=== PATIENT | female | born 1970 | race Caucasian/White ===

== ENCOUNTER 2019-03-08 12:05 | Observation (INO) | payer BC ==
--- OUTSIDE RECORDS SUMMARY | 2019-03-08 12:35 | XMS REPORT | Continuity of Care Document ---
:1970 External Reference #:[id number] Author Name Bianca Spaulding NP Address [address] [facility] [place] [address] Care Team Providers Name Role Phone John Lara MD Care Team Information Cost Engineer Unavailable John Lara MD Primary Care Physician Unavailable Payers Date Identification Numbers Payment Provider Subscriber Effective: 2018 Policy Number: [id number] Out Of Area [facility] Jonathan Moraes PayID: [id number] [address] [address] [place] [address] Effective: 2011 Policy Number: [id number] BC/BS Of SILVESTRE Moraes Expires: 2018 Group Name: BC/BS [address] [address] PayID: [id number] [place] [address] Problems Active Problems Provider Date Edema John Lara M.D. Onset: 06/23/2013 Arthropathy John Lara M.D. Onset: 06/23/2013 Malaise and fatigue John Lara M.D. 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 Tobacco Use Start: Unknown Nonsmoker ETOH Use Rarely consumes alcohol Exercise Type/Frequency Current Exercises sporadically Seat Belt/Car Seat Always uses a seat belt Allergies, Adverse Reactions, Alerts Description No Known Drug Allergies Medications Active Medications SIG Qnty Indications Ordering Date Provider Ibuprofen 2-3 qid prn Unknown 200mg Tablets Gabapentin 1 by mouth daily Unknown 300mg Capsules at hs Diphenhydramine HCL 1 by mouth at Unknown 25mg bedtime as Capsules directed Multi Complete 1 daily Unknown Capsules Iron 75 mg every three Unknown days History Medications Montelukast Sodium Take 1 Tablet By 30tabs J45.20 Bonnie Urban [facility] 2015 - Mouth Once Daily 03/08/2019 10mg Tablets Junel Fe 09/26 Take 1 Tablet By 28tabs N92.5 Bonnie Urban [facility] 05/01/2016 - Mouth Once Daily 03/08/2019 1-20mg-mcg Tablets Singulair Take 1 Tablet By 30tabs J45.20 Bonnie Urban [facility] 11/08/2015 - 10mg Mouth Once Daily 06/01/2016 Tablets Montelukast Sodium 1 by mouth every 30tabs 493.10 Bonnie Urban [facility] 2014 - day 11/08/2015 10mg Tablets Loestrin Fe 09/26 1 by mouth daily 1pack 626.4 Bonnie Urban [facility] 2013 - 05/01/2016 1-20mg-mcg Tablets Iron Supplement 1 po bid 100tabs John Lara, 07/11/2013 - M.D. 03/08/2019 325(65Fe) mg Tablets Loestrin 24 Fe 1 po qd 1pack V25.09 John Lara, 02/17/2013 - M.D. 09/14/2013 1-20mg-mcg Tablets Proair HFA Inhale 1 To 2 8.5units J45.20 China Mina, 02/16/2013 - Puffs By Mouth M.D. 03/08/2019 108(90Base) mcg/Act Every 4 To 6 Aerosol Hours as Needed Ankle Stirrup Brace wear as directed 1units 845.00 Martin Ashraf, 2009 - M.D. 04/07/2010 Levaquin 1 po qd 10tabs 465.9 Efrain Marcos, 11/29/2009 - 500mg M.D. 04/06/2010 Tablets Prednisone 2 bid x 3days, 30tabs 493.10 Efrain Marcos, 11/29/2009 - 10mg then 3 qd x 3 M.D. 04/06/2010 Tablets days, then 1 bid x 3 days then 1 qd x 3 Tussionex 5ml po q12 hours 70ml 465.9 Efrain Marcos, 11/15/2009 - Pennkinetic ER M.D. 11/29/2009 8-10mg/5ML Liquid ER Note please excuse 1units Efrain Marcos, 11/12/2009 - from work 11/08/09 M.D. 04/06/2010 through today due to illness Ronna Casas one to two tabs 30caps 465.9 Efrain Marcos, 11/12/2009 - po tid prn cough M.D. 11/15/2009 100mg Capsules Azithromycin 2 po today and 1 6tabs 465.9 Efrain Marcos, 11/12/2009 - 250mg po x 4 days M.D. 11/29/2009 Tablets Proair HFA 1-2 puffs q 4-6 1units 493.00 Fanta Reich, 07/06/2009 - hr prn Afnp-C 02/16/2013 108mcg/Act Aerosol Tamiflu 1 po bid x 5 10caps 079.99 Fanta Reich, 07/06/2009 - 75mg days Afnp-C 07/11/2009 Capsules Zithromax 2 po qd today , 6Tabs 079.99 Fanta Reich, 07/06/2009 - 250mg then 1 po qd Afnp-C 07/09/2009 Tablets times 4 Out Of Work out of work due 079.99 Fanta Reich, 07/06/2009 - to illness; january Afnp-C 07/11/2009 return to work after 24 hrs w/o fever Augmentin 1 PO bid With 20tabs 461.9 Bonnie Urban, LEAD CASE MANAGER 03/31/2007 - 500mg;125 Food X 10D 07/06/2009 mg Tablets Robitussin ac 1-2 TSP PO Q4H 4Oz 461.9 Bonnie Urban, [facility] 03/31/2007 - prn Cough 07/06/2009 Note No Work Alysia Was 461.9 Bonnie Urban, [facility] 03/31/2007 - Seen By Me Today 07/06/2009 For Illness, May Not Return Thursday, 7\\\\07 Skelaxin 1 PO bid 60tabs Bonnie Urban, [facility] 12/03/2005 - 800mg 03/31/2007 Tablets Ibuprofen 1-2 po q 6hr prn Family Medicine 12/03/2005 - 200mg [facility] 07/06/2009 Tablets [facility]enton Orthonovum as Directed 0units [facility] 12/03/2005 - [facility] 02/15/2013 [facility] Proair Two Puffs as 1units Fanta Reich, 12/03/2005 - 90mcg/Dose Needed qid Afnp-C 07/06/2009 Aerosol Vicodin 5/500 1 qid prn Pain 30units [facility] 12/03/2005 - [facility] 03/31/2007 [facility] Claritin 1 po qd 30tabs Unknown - 10mg 03/08/2019 Tablets Neurontin 3-5 po qhs Unknown - 200mg 03/08/2019 Capsules Immunizations CPT Code Status Date Vaccine Lot # [id number] Given 04/29/2015 DO Not Use Split Influenza Virus Vaccine [id number] Given 02/17/2013 Tdap Tetanus, W Pertussis [id number] Vital Signs Date Vital Result Comment 03/08/2019 9:06am BP Systolic 118 mmHg BP Diastolic 68 mmHg Heart Rate 82 /min Body Temperature 98.6 F Respiratory Rate 16 /min Height 60 inches 5'0" Weight 163.00 lb BMI (Body Mass Index) 31.8 kg/m2 04/09/2015 9:46am BP Systolic 112 mmHg BP Diastolic 72 mmHg Heart Rate 74 /min Body Temperature 98.3 F Height 60 inches 5'0" Weight 170.00 lb BMI (Body Mass Index) 33.2 kg/m2 06/23/2013 10:49am BP Systolic 110 mmHg BP Diastolic 70 mmHg Heart Rate 68 /min Body Temperature 98.3 F Respiratory Rate 16 /min Height 60 inches 5'0" Weight 173.00 lb BMI (Body Mass Index) 33.8 kg/m2 02/17/2013 10:25am BP Systolic 120 mmHg BP Diastolic 88 mmHg Heart Rate 64 /min Body Temperature 97.9 F Respiratory Rate 18 /min Height 60 inches 5'0" Weight 173.00 lb BMI (Body Mass Index) 33.8 kg/m2 02/16/2013 8:29am BP Systolic 120 mmHg BP Diastolic 88 mmHg Heart Rate 60 /min Body Temperature 97.8 F Height 60 inches 5'0" Weight 173.25 lb BMI (Body Mass Index) 33.8 kg/m2 05/09/2010 4:29pm BP Systolic 102 mmHg BP Diastolic 72 mmHg Heart Rate 68 /min Height 60 inches 5'0" Weight 157.00 lb BMI (Body Mass Index) 30.7 kg/m2 04/06/2010 1:02pm BP Systolic 110 mmHg BP Diastolic 70 mmHg Heart Rate 84 /min Body Temperature 97.2 F Respiratory Rate 16 /min Height 60 inches 5'0" Weight 161.00 lb BMI (Body Mass Index) 31.4 kg/m2 11/29/2009 11:59am BP Systolic 120 mmHg BP Diastolic 80 mmHg Heart Rate 84 /min Body Temperature 99.1 F O2 % BldC Oximetry 99 % Weight 155.00 lb 11/12/2009 10:04am BP Systolic 110 mmHg BP Diastolic 80 mmHg Heart Rate 96 /min Body Temperature 99.3 F Weight 152.00 lb 07/06/2009 10:46am BP Systolic 120 mmHg BP Diastolic 74 mmHg Heart Rate 104 /min Body Temperature 102.6 F Height 60 inches 5'0" Weight 162.00 lb BMI (Body Mass Index) 31.6 kg/m2 03/31/2007 3:22pm BP Systolic 114 mmHg BP Diastolic 74 mmHg Heart Rate 78 /min Body Temperature 97.7 F Height 60 inches 5'0" Weight 151.00 lb BMI (Body Mass Index) 29.5 kg/m2 12/03/2005 1:04pm BP Systolic 108 mmHg BP Diastolic 72 mmHg Heart Rate 84 /min Respiratory Rate 18 /min Height 60 inches 5'0" Weight 151.00 lb BMI (Body Mass Index) 29.5 kg/m2 Results Test Date Facility Test Result H/L Range Note CBC Electronic (Fma) 06/23/2013 [facility] WBC 7.1 3.6-9.6 (607)- - RBC 5.31 3.90-5.70 Hemoglobin (Fma/CMC/CTX) 11.3 g/dL Low 12.1 - 17.2 Hematocrit (Fma/CMC/CTX) 37.5 % 36.1 - 50.3 Platelets 388 10^3/ul 150-400 Lymph% 36.7 20.5-51.1 Mixed% 6.0 Neutrophils % 57.3 Mean Corpuscular Vol 71 Low 82.2-97.4 Mean Corpuscular Hemoglobin 21.3 Low 27.6-33.3 Mean Corpuscular Hemo Concen 30.1 Low 32.0-36.0 RDW 16.8 High 11.6-13.7 Mean Platelet Volume 8.3 6.5-11.0 Laboratory test 06/23/2013 [facility] Sed Rate 11 mm finding (607)- - (Fma/CMC/[facility]) Comprehensive 06/23/2013 [place] [facility](fma) Albumin 4.5 g/dL 3.8-5. Metabolic Prof 5 Alk. Phos. 89 U/L 30-110 Alt (SGPT) 26 U/L 7-35 Ast (Sgot) 38 U/L High 5-34 BUN 9 mg/dL 6-26 Calcium 9.1 mg/dL 8.6-10.2 Chloride 101 mEq/L 94-112 Creatinine 0.9 mg/dL 0.6-1.4 Carbon Dioxide 27 mEq/L 21-32 Glucose 109 mg/dL High 70-105 1 Sodium 139 mEq/L 134-149 Total Bilirubin 0.4 mg/dL 0.2-1.3 Total Protein 7.2 g/dL 6.3-8.1 Potassium 4.4 mEq/L 3.6-5.5 Globulin 2.7 g/dL 2.0-4.8 A/G Ratio 1.6 Calc 0.6-2.3 BUN/Creat Ratio 9.7 Calc 8.0-36.0 Laboratory test finding 06/23/2013 [facility](fma) TSH 2.34 mIU/L 0.50-6.00 Ferritin 7 ng/mL 6-115 Laboratory test 06/23/2013 [facility] C-Reactive 3.4 mg/L 0.0-5.0 2 finding [address] [facility] [place] [address] [phone] Cortisol (Am) 8.0 g/dL 4.3-22.4 Iron/Tibc,%Sat Group 06/23/2013 [facility] Iron 24 g/dL Low 30-158 [address] [place] [address] [phone] Total Iron Binding Cap. 457 g/dL High 250-450 % Iron Saturation 5.3 % Low 13.0-45.0 Laboratory test 06/23/2013 [facility] Reticulocyte 2.3 % High 0.5-1.5 finding [address] [facility] [place] [address] [phone] Celiac Disease 06/23/2013 [facility] Deamidated 2 units 0-19 3 Comp PNL 28 [facility] Gliadin Abs, [place] [address] [phone] Deamidated Gliadin Abs, IgG 2 units 0-19 4 t-Transglutaminase (tTG) IgA <2 U/mL 0-3 5 t-Transglutaminase (tTG) IgG <2 U/mL 0-5 6 Endomysial Antibody IgA Negative Negative Immunoglobulin A, Qn, Serum 90 mg/dL Low 91-414 Laboratory test 02/17/2013 [facility] Thin Prep W/HPV SEE NOTE 7 finding [address] [place] [address] [phone] Urine 02/17/2013 [facility] SP Grav 1.015 (Fma) (607)- - Urine, (Fma/CMC/CTX) negative Ua - Non Micro (Fma) 02/17/2013 [facility] Appearance clear (607)- - Color yellow Glucose, Urine (Fma/CMC/CTX) neg Bilirubin neg Ketones neg SP Grav 1.015 Blood trace-intact # PH 7.0 Protein neg Urobil 0.2 Nitrite neg Leukocytes (Fma/CMC/[facility]) neg Laboratory test 02/16/2013 [facility] Vitamin D, 25 30.8 ng/mL 30.0-100.0 8 finding [address] [facility] [place] [address] [phone] Lyme Igg/M W/RFX 02/16/2013 [facility] Lyme IgG/IgM <0.91 0.00-0.90 [address] [place] [address] [place] [address] [phone] Lyme Disease Ab, Quant, IgM <0.91 index 0.00-0.90 10 Laboratory test 02/16/2013 [facility] Rheumatoid Arth 8.0 IU/mL 0.0-13.9 finding [address] [facility] [place] [address] [phone] Antinuclear Abs, Ifa Negative 11 CBC Electronic (a) 02/16/2013 [facility] WBC 6.7 3.6-9.6 (607)- - RBC 4.88 3.90-5.70 Hemoglobin (Fma/CMC/CTX) 8.7 g/dL Low 12.1 - 17.2 12 Hematocrit (Fma/CMC/CTX) 29.8 % Low 36.1 - 50.3 Platelets 423 10^3/ul High 150-400 Lymph% 36.6 20.5-51.1 Mixed% 11.9 Neutrophils % 51.5 Mean Corpuscular Vol 61 Low 82.2-97.4 Mean Corpuscular Hemoglobin 17.7 Low 27.6-33.3 Mean Corpuscular Hemo Concen 29.1 Low 32.0-36.0 RDW 16.3 High 11.6-13.7 Mean Platelet Volume 8.9 6.5-11.0 Laboratory test 02/16/2013 [facility] Sed Rate 16 mm finding (607)- - (Fma/CMC/[facility]) Laboratory test 02/16/2013 [facility] Duarte([facility]) B12 372 pg/mL 230-1 finding 050 Lipid Profile 02/16/2013 [facility]) Cholesterol 236 mg/dL High 120-2 00 HDL 62 mg/dL 30-85 Triglycerides 174 mg/dL 30-200 HDL Risk Factor 3.8 CALC 0.0-4.4 LDL (Calculated) 139 CALC High 0-129 VLDL (Calculated) 35 mg/dL 0-50 Comprehensive Metabolic 02/16/2013 U[facility] Duarte([facility]) Albumin 4.3 g/dL 3.8-5.5 Prof Alk. Phos. 78 U/L 30-110 Alt (SGPT) 26 U/L 7-35 Ast (Sgot) 50 U/L High 5-34 13 BUN 10 mg/dL 6-26 Calcium 9.2 mg/dL 8.6-10.2 Chloride 103 mEq/L 94-112 Creatinine 0.8 mg/dL 0.6-1.4 Carbon Dioxide 28 mEq/L 21-32 Glucose 100 mg/dL 70-105 Sodium 139 mEq/L 134-149 Total Bilirubin 0.5 mg/dL 0.2-1.3 Total Protein 7.2 g/dL 6.3-8.1 Potassium 4.4 mEq/L 3.6-5.5 Globulin 2.9 g/dL 2.0-4.8 A/G Ratio 1.5 Calc 0.6-2.3 BUN/Creat Ratio 11.2 Calc 8.0-36.0 Laboratory test finding 02/16/2013 [facility](fma) TSH 4.48 mIU/L 0.50-6.00 Free T4 0.93 ng/dL 0.75-1.54 Influenza A&B 07/06/2009 [facility] Influenza A NEG (607)- - Influenza B NEG 1 RESUL TRECK'D 2 4sst; 1lav 3 Negative 0 - 19 Weak Positive 20 - 30 Moderate to Strong Positive >30 4 Negative 0 - 19 Weak Positive 20 - 30 Moderate to Strong Positive >30 5 Negative 0 - 3 Weak Positive 4 - 10 Positive >10 Tissue Transglutaminase (tTG) has been identified as the endomysial antigen. Studies have demonstr- ated that endomysial IgA antibodies have over 99% specificity for gluten sensitive enteropathy. 6 Negative 0 - 5 Weak Positive 6 - 9 Positive >9 7 [employer] [employer] DEPARTMENT OF PATHOLOGY or Extension 8244 COMBINED HPV / GRANT OFFICER CYTOLOGY REPORT PATIENT: ALYSIA MORAES : 1970 AGE: 42 Y SEX: F ACCT: [id number] PROCEDURE DATE: 02/17/2013 DATE RECEIVED: 02/18/2013 REQUESTING PROVIDER: MYLENE EVANS NP LOCATION: [facility] Case No. [id number] PATIENT DATA: [id number] SPECIMEN SUBMITTED: * * (HPVR) THIN PREP W/HPV * * CERVICAL/ENDOCERVICAL RELEVANT HISTORY: LMP: /??/2012 Comment: PREVIOUS PAP: YEARS SPECIMEN ADEQUACY SATISFACTORY FOR EVALUATION, ENDOCERVICAL TRANSFORMATION ZONE COMPONENT PRESENT GENERAL CATEGORIZATION NEGATIVE FOR INTRAEPITHELIAL LESIONS OR MALIGNANCY RECOMMENDATIONS See Related Reference Test Result below. Refer to the corresponding web sites for 2012 updated general recommendation guidelines of U.S. preventive service task force for cervical cancer screening, and www.asccp.org//yhzryonfq7944. COMMENTS Thin Prep Pap tests are examined with an FDA approved location-guidance system. RELATED REFERENCE TEST RESULT: HPV: "HIGH RISK" Source: CERVICAL Result: NEGATIVE Test Method: HC2 Performing Location: METHODOLOGY: HPV high risk is performed with the FDA approved Digene HC2 method whenever the specimen is cellular enough and the quantity of sample remaining in the vial after Thin Prep PAP slide preparation equals or greater than 4 ml. In cases of smaller sample (0.5 to 3.9 ml) the HPV high risk testing will be performed with Low Volume rfx. (01 RN) Digene Hybrid Capture (HC2). FDA approved and detects 13 "high risk" HPV types (16/18/31/33/35/39/45/51/52/56/58/59/68) without differentiation. (02 BN) Low Volume rfx detects fourteen "high risk" HPV types (16/18/31/33/35/39/45/51/52/56/58/59/66/68) without differentiation. ADDITIONAL COPIES SENT TO: Screened/Rescreened Electronically Signed Sign Out Date/Time: by: by: SEVERINO DEVLIN, 02/24/2013 10:11 CT(ASC) Note: The Pap smear is a screening test designed to aid in the detection of premalignant and malignant conditions of the uterine cervix. It is not a diagnostic procedure and should not be used as the sole means of detecting cervical cancer. Both false-positive and false-negative reports do occur. 00 UA Pap Smear performed at [facility] Dir: Alber Jewell MD, [address] [facility] [address] 01 airplane rental clerk [place] Dir: Srini Flores MD, [address] [facility] [address] 02 BN [facility] [place] Dir: Carlos Eduardo Ferrell MD, [address] [facility] [address] For inquiries regarding HPV test results, the physician may contact [facility]: [phone] . 8 Vitamin D deficiency has been defined by the [employer] of Medicine and an Endocrine Society practice guideline as a level of serum 25-OH vitamin D less than 20 ng/mL (1,2). The Endocrine Society went on to further define vitamin D insufficiency as a level between 21 and 29 ng/mL (2). 1. IOM ([employer] of Medicine). 2010. Dietary reference intakes for calcium and D. [place]: The National Academies Press. 2. Rochelle MF, Lidia NC, Venkat TREVIÑO, et al. Evaluation, treatment, and prevention of vitamin D deficiency: an Endocrine Society clinical practice guideline. JCEM. 2010; 96(7):1911-30. 9 Negative <0.91 Equivocal 0.91 - 1.09 Positive >1.09 Note: The CDC currently advises that Western blot testing be performed following all equivocal or positive EIA results. Final diagnosis should include appropriate clinical findings and a positive EIA which is also positive by Western blot. 10 Negative <0.91 Equivocal 0.91 - 1.09 Positive >1.09 . Note: IgM levels may peak at 3-6 weeks post infection, then gradually decline. FDA currently advises that Western Blot testing be performed following all equivocal or positive EIA results. Final diagnosis should include appropriate clinical findings and a positive EIA which is also positive by Western Blot. 11 Negative <1:80 Borderline 1:80 Positive >1:80 12 result camden'd and provider made aware 13 result camden'd Procedures Date Code Description Status 06/05/2014 19404351 Mammogram Completed 09/14/2013 85301336 Mammogram Completed 02/24/2013 [id number] Mammogram Completed 07/06/2009 87006 Pulse Oximetry Completed Encounters Type Date Location Provider Dx Diagnosis Office Visit 04/09/2015 Main Office ETHAN Yanez 626.4 Irregular Menstrual 9:30a Cycle 493.10 Asthma Intrinsic Unspecified Office Visit 06/23/2013 9:40a Main Office John Lara, 780.79 Malaise And M.D. 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 Respiratory Infections Acute Unspec Sites 493.10 Asthma Intrinsic Unspecified Office Visit 11/12/2009 10:00a [facility] Efrain Carney 465.9 KELLY Marcos M.D. 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 Please go to the emergency department with your driving as we discussed.R42 Dizziness and giddinessAllComments :1. Patient has been queried about patient's goals/preferences and functional/ lifestyle goals at relevant visits. If relevant, describe: Has been discussed, noted above2. Treatment goals as explainedto the patient: see above3. Are there barriers to meeting treatment goals? Yes If Yes, please describe: Barriers include possible insurance limits, disease process, and difficulty with lifestyle changes4. Self-Management goals as described to the patient: Yes , see above As always, we strongly encourage a healthy diet and making physical activity a part of your every day life. If you have questions about how or where to start, please contact the office.
--- OUTSIDE RECORDS SUMMARY | 2019-03-08 12:35 | XMS REPORT | Continuity of Care Document ---
:1970 External Reference #:[id number] Author Name Bianca Spaulding NP Address [address] [place] [address] Care Team Providers Name Role Phone John Lara MD Care Team Information Set Up Person Unavailable John Lara MD Primary Care Physician Unavailable Payers Date Identification Numbers Payment Provider Subscriber Effective: 2018 Policy Number: [id number] Out Of Area 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 Tobacco Use Start: Unknown Nonsmoker [...] 1 Tablet By 30tabs J45.20 Bonnie Urban [facility] 2015 - Mouth Once Daily 03/08/2019 10mg Tablets Junel Fe 09/26 Take 1 Tablet By 28tabs N92.5 Bonnie Urban [facility] 05/01/2016 - Mouth Once Daily 03/08/2019 1-20mg-mcg Tablets Singulair Take 1 Tablet By 30tabs J45.20 Bonnie Urban [facility] 11/08/2015 - 10mg Mouth Once Daily 06/01/2016 Tablets Montelukast Sodium 1 by mouth every 30tabs 493.10 Bonnie Urban [facility] 2014 - day 11/08/2015 10mg Tablets Loestrin Fe 09/26 1 by mouth daily 1pack 626.4 Bonnie Urban [facility] 2013 - 05/01/2016 1-20mg-mcg Tablets Iron Supplement [...] PO bid With 20tabs 461.9 Bonnie Urban, [employer] 03/31/2007 - 500mg;125 Food X 10D 07/06/2009 mg Tablets Robitussin ac 1-2 TSP PO Q4H 4Oz 461.9 Bonnie Urban, [facility] 03/31/2007 - prn Cough 07/06/2009 Note No Work Alysia Was 461.9 Bonnie Urban, [facility] 03/31/2007 - Seen By Me Today 07/06/2009 For Illness, May Not Return Thursday, 7\\\\07 Skelaxin 1 PO bid 60tabs Bonnie Urban, [facility] 12/03/2005 - 800mg 03/31/2007 Tablets Ibuprofen 1-2 po q 6hr prn Family [facility] 12/03/2005 - 200mg [facility] 07/06/2009 Tablets Maynard Orthonovum as Directed 0units [facility] 12/03/2005 - [facility] 02/15/2013 Maynard Proair Two Puffs as 1units [facility] Reich, 12/03/2005 - 90mcg/Dose Needed qid Afnp-C 07/06/2009 Aerosol Vicodin 5/500 1 qid prn Pain 30units [facility] 12/03/2005 - [facility] 03/31/2007 Maynard Claritin 1 po qd 30tabs Unknown - 10mg 03/08/2019 Tablets Neurontin 3-5 po qhs Unknown - 200mg 03/08/2019 Capsules Immunizations CPT Code Status Date Vaccine Lot # [id number] Given 04/29/2015 DO Not Use Split Influenza Virus Vaccine [id number] Given 02/17/2013 Tdap Tetanus, W Pertussis [id number] Vital Signs Date Vital Result Comment 03/08/2019 [...] Date Facility Test Result H/L Range Note Laboratory test 03/08/2019 [facility] Hematocrit 21.0 % Low 35.0- 50.0 finding (607)- - (Fma/CMC/CTX) Hemoglobin (Fma/CMC/CTX) 5.3 g/dL Low 12.0-17.0 Comprehensive Metabolic 06/23/2013 [facility](fma) Albumin 4.5 g/dL 3.8-5.5 Prof Alk. Phos. 89 U/L 30-110 Alt (SGPT) [...] Calc 8.0-36.0 Laboratory test finding 06/23/2013 [facility](a) TSH 2.34 mIU/L 0.50-6.00 Ferritin 7 ng/mL 6-115 CBC Electronic ([facility]) 06/23/2013 [facility] WBC 7.1 3.6-9.6 (607)- [...] Platelet Volume 8.3 6.5-11.0 Laboratory test 06/23/2013 [facility] C-Reactive 3.4 mg/L 0.0-5.0 2 finding 28 [facility] Protein [place], [place] [id number] [phone] Cortisol (Am) 8.0 g/dL 4.3-22.4 Celiac Disease 06/23/2013 [facility] Deamidated Gliadin 2 units 0-19 3 Comp PNL 28 [facility] Abs, [place] [address] [phone] Deamidated Gliadin Abs, IgG 2 units 0-19 4 t-Transglutaminase (tTG) IgA <2 U/mL 0-3 5 t-Transglutaminase (tTG) IgG <2 U/mL 0-5 6 Endomysial Antibody IgA Negative Negative Immunoglobulin A, Qn, Serum 90 mg/dL Low 91-414 Laboratory test 06/23/2013 [facility] Reticulocyte 2.3 % High 0.5-1.5 finding 28 [facility] [place] [address] [phone] Laboratory test 06/23/2013 [facility] Medicine Sed Rate 11 mm finding (607)- - (Fma/CMC/[facility]) Iron/Tibc,%Sat 06/23/2013 [facility] Iron 24 Low 30-158 Group 28 [facility] g/[place] [address] [phone] Total Iron Binding Cap. 457 g/dL High 250-450 % Iron Saturation 5.3 % Low 13.0-45.0 Ua - Non Micro (Fma) 02/17/2013 [facility] Appearance clear (607)- - Color yellow Glucose, Urine (Fma/CMC/CTX) neg Bilirubin neg Ketones neg SP Grav 1.015 Blood trace-intact # PH 7.0 Protein neg Urobil 0.2 Nitrite neg Leukocytes (Fma/[facility]) neg Laboratory test 02/17/2013 [facility] Thin Prep W/HPV SEE NOTE 7 finding 28 [place] [address] [phone] Urine 02/17/2013 [facility] Medicine SP Grav 1.015 (Fma) (607)- - Urine, (Fma/CMC/CTX) negative Lyme Igg/M 02/16/2013 [facility] Lyme IgG/IgM <0.91 index 0.00-0.90 8 W/RFX West 28 [facility] Ab [place], [place] [id number] [phone] Lyme Disease Ab, Quant, IgM <0.91 index 0.00-0.90 9 Laboratory test 02/16/2013 [facility] Rheumatoid Arth 8.0 IU/mL 0.0-13.9 finding [address] [facility] [address] [phone] Antinuclear Abs, Ifa Negative 10 CBC Electronic (a) 02/16/2013 Family [facility] WBC 6.7 3.6-9.6 (607)- - RBC 4.88 3.90-5.70 Hemoglobin (Fma/CMC/CTX) 8.7 g/dL Low 12.1 - 17.2 11 Hematocrit (Fma/CMC/CTX) 29.8 % Low 36.1 - 50.3 Platelets 423 10^3/ul High 150-400 Lymph% 36.6 20.5-51.1 Mixed% 11.9 Neutrophils % 51.5 Mean Corpuscular Vol 61 Low 82.2-97.4 Mean Corpuscular Hemoglobin 17.7 Low 27.6-33.3 Mean Corpuscular Hemo Concen 29.1 Low 32.0-36.0 RDW 16.3 High 11.6-13.7 Mean Platelet Volume 8.9 6.5-11.0 Laboratory test 02/16/2013 Family [facility] Sed Rate 16 mm finding (607)- - (Fma/[facility]) Laboratory test 02/16/2013 [facility] Vitamin D, 25 Oh 30.8 30.0- 12 finding 28 [facility] ng/mL 100.0 [place], [place] [address] [phone] Laboratory test 02/16/2013 [facility]) B12 372 230-1 finding pg/mL 050 Lipid Profile 02/16/2013 [facility](a) Cholesterol 236 High 120-2 mg/dL 00 HDL 62 mg/dL 30-85 Triglycerides 174 mg/dL 30-200 HDL Risk Factor 3.8 CALC 0.0-4.4 LDL (Calculated) 139 CALC High 0-129 VLDL (Calculated) 35 mg/dL 0-50 Comprehensive Metabolic 02/16/2013 [facility](a) Albumin 4.3 g/dL 3.8-5.5 Prof Alk. Phos. [...] T4 0.93 ng/dL 0.75-1.54 Influenza A&B 07/06/2009 [facility] Influenza A NEG (607)- - Influenza B [...] Positive 6 - 9 Positive >9 7 Consulted, INC. DEPARTMENT OF PATHOLOGY or Extension 4729 COMBINED HPV / GAS OR PETROLEUM OPERATOR CYTOLOGY REPORT PATIENT: ALYSIA MORAES : 1970 AGE: 42 Y SEX: F ACCT: [id number] PROCEDURE DATE: 02/17/2013 DATE RECEIVED: 02/18/2013 REQUESTING PROVIDER: MYLENE EVANS NP LOCATION: [facility] Case No. [id number] PATIENT DATA: [id number] SPECIMEN SUBMITTED: * * (HPVR) THIN PREP W/HPV * * CERVICAL/ENDOCERVICAL RELEVANT HISTORY: LMP: 04/??/2012 Comment: PREVIOUS PAP: YEARS SPECIMEN ADEQUACY SATISFACTORY FOR EVALUATION, ENDOCERVICAL TRANSFORMATION ZONE COMPONENT PRESENT GENERAL CATEGORIZATION NEGATIVE FOR INTRAEPITHELIAL LESIONS OR MALIGNANCY RECOMMENDATIONS See Related Reference Test Result below. Refer to the corresponding web sites for 2012 updated general recommendation guidelines of [place].S. preventive service task force for cervical cancer screening, and www.asccp.org//dbaerpzsv7234. COMMENTS Thin Prep Pap tests are examined [...] will be performed with Low Volume rfx. ( RN) Digene Hybrid Capture (HC2). FDA approved and detects 13 "high risk" HPV types (16/18/31/33/35/39/45/51/52/56/58/59/68) without differentiation. (02 BN) Low Volume rfx detects fourteen "high risk" HPV types (16/18/31/33/35/39/45/51/52/56/58/59/66/68) without differentiation. ADDITIONAL COPIES SENT TO: Screened/Rescreened Electronically Signed Sign Out Date/Time: by: by: SEVERINO DEVLIN, 02/24/2013 10:11 CT(ASCP) Note: The Pap smear is a screening test designed to aid in the detection of premalignant and malignant conditions of the uterine cervix. It is not a diagnostic procedure and should not be used as the sole means of detecting cervical cancer. Both false-positive and false-negative reports do occur. 00 UA Pap Smear performed at [facility] Dir: Alber Jewell MD, [address] [facility] [address] 01 food services manager [facility] [place] Dir: Srini Flores MD, [address] [facility] [address] 02 BN [facility] [place] Dir: Carlos Eduardo Ferrell MD, [address] [place] [phone] For inquiries regarding HPV test results, the physician may contact [facility]: [phone] . 8 Negative <0.91 Equivocal 0.91 - 1.09 Positive >1.09 Note: The CDC currently advises that Western blot testing be performed following all equivocal or positive EIA results. Final diagnosis should include appropriate clinical findings and a positive EIA which is also positive by Western blot. 9 Negative <0.91 Equivocal 0.91 - 1.09 Positive >1.09 . Note: IgM levels may peak at 3-6 weeks post infection, then gradually decline. FDA currently advises that Western Blot testing be performed following all equivocal or positive EIA results. Final diagnosis should include appropriate clinical findings and a positive EIA which is also positive by Western Blot. 10 Negative <1:80 Borderline 1:80 Positive >1:80 11 result camden'd and provider made aware 12 Vitamin D deficiency has been defined by the [place] of Medicine and an Endocrine Society practice guideline as a level of serum 25-OH vitamin D less than 20 ng/mL (1,2). The Endocrine Society went on to further define vitamin D insufficiency as a level between 21 and 29 ng/mL (2). 1. IOM ([place] of Medicine). 2010. Dietary reference intakes for calcium and D. [place]: The National Academies Press. 2. Rochelle MF, Lidia MATSON, Venkat TREVIÑO, et al. Evaluation, treatment, and prevention of vitamin D deficiency: an Endocrine Society clinical practice guideline. JCEM. 2010; 96(7):1911-30. 13 result camden'd Procedures Date Code Description Status 06/05/2014 50377839 Mammogram Completed 09/14/2013 [id number] Mammogram Completed 02/24/2013 [id number] Mammogram Completed 07/06/2009 11886 Pulse Oximetry Completed Encounters Type Date Location Provider Dx Diagnosis Office Visit 04/09/2015 Main Office ETHAN Yanez 626.4 Irregular Menstrual 9:30a Cycle 493.10 Asthma Intrinsic Unspecified Office Visit 06/23/2013 9:40a Main Office John Lara, 780.79 Malaise And M.D. Fatigue Other 716.89 Arthropathy Other Spec Multiple Sites 782.3 Edema 281.9 Anemia Deficiency Unspec Office Visit 02/17/2013 10:30a Main Office Mylene Evans, V72.31 Routine Arts Administrator Or Manager MEDICAL AFFAIRS LEADER Examination V76.41 Screening Malignant Neoplasm Rectum V25.09 Contraceptive Management Other 281.9 Anemia Deficiency Unspec V06.5 Tetanus Diphtheria (DT) 626.4 Irregular Menstrual Cycle Office Visit 02/16/2013 8:30a [facility] Mylene Evans, 780.79 Malaise And MEDICAL AFFAIRS LEADER Fatigue Other 716.89 Arthropathy Other Spec Multiple Sites 782.3 Edema V77.91 Screening For Lipoid Disorders Office Visit 11/29/2009 11:30a Main Office Efrain Carney 465.9 KELLY Marcos M.D. Respiratory Infections Acute Unspec Sites 493.10 Asthma Intrinsic Unspecified Office Visit 11/12/2009 10:00a [facility] Efrain Carney 465.9 KELLY Marcos M.D. Respiratory Infections Acute Unspec Sites 493.10 Asthma Intrinsic Unspecified Office Visit 07/06/2009 10:45a [facility] Fanta Reich, 079.99 Viral Infection Afnp-C Unspec Office Visit 03/31/2007 3:00p Main Office Bonnie Urban, 461.9 Sinusitis Acute AUTOM[employer]IC P[employer]CH [employer]ESS OPERATOR Unspec Office Visit 12/03/2005 1:00p Main Office Bonnie Rajni, 780.2 Syncope & AUTOMATIC P[employer]CH PRESS OPERATOR Collapse Plan of Treatment 03/08/2019 - Bianca Spaulding, NPN92.1 Excessive and frequent menstruation with irregular jqecdD95.0 Iron deficiency anemia secondary to blood loss [...]
--- NOTE | 2019-03-08 13:04 | ED ---
Complex/Multi-Sys Presentation - HPI Summary HPI Summary: 48 year old F presenting to [facility] accompanied by with a chief complaint of worsening dizziness and lightheadness lasting for several minutes for 3 months. The patient rates the pain 0/10 in severity. Symptoms aggravated by standing. Symptoms alleviated by sitting down. Patient reports weakness and nausea. Patient reports heavy vaginal bleeding. Patient denies chest pain, shortness of breath, palpitations. Patient was seen by her primary care provider this morning and had bloodwork done. Patient denies being . - History Of Current Complaint Chief Complaint: EDGeneral Time Seen by Provider: 03/08/19 12:56 Hx Obtained From: Patient Onset/Duration: Lasting Weeks - 3 months, Still Present Timing: Intermittent, Lasting: - several minutes Severity Currently: None Aggravating Factor(s): Standing up Alleviating Factor(s): Sitting up Associated Signs And Symptoms: Positive: Other - 48 year old F presenting to [facility] accompanied by with a chief complaint of worsening dizziness and lightheadness lasting for a few minutes for 3 months. The patient rates the pain 0/10 in severity. Symptoms aggravated by standing. Symptoms alleviated by sitting down. weakness and nausea, heavy vaginal bleeding; NEGATIVE: chest pain , shortness of breath, palpitations - Allergies/Home Medications Allergies/Adverse Reactions: Allergies Allergy/AdvReac Type Severity Reaction Status Date / Time No Known Allergies Allergy Verified 03/08/19 12:24 Home Medications: Home Medications Norethindr/Eth Estradiol(Nf) [Lo Loestrin Fe (NF)] 1 tab PO DAILY 03/08/19 [ History Confirmed 03/08/19] PMH/Surg Hx/FS Hx/Imm Hx Previously Healthy: No Cardiovascular History: Reports: Hx Congestive Heart Failure - evaluation for ordered by Dr. Lara 06/2013 Respiratory History: Reports: Hx Asthma, Hx Seasonal Allergies, Hx Sleep Apnea - new CPAP user Musculoskeletal History: Reports: Other Musculoskeletal History - joint pain, stiff hands Sensory History: Reports: Hx Contacts or Glasses Opthamlomology History: Reports: Hx Contacts or Glasses Neurological History: Reports: Hx Seizures - hx grand mal 2004- no findings, no reccurance - Cancer History Hx Chemotherapy: No Hx Radiation Therapy: No - Surgical History Surgery Procedure, Year, and Place: 1988 [facility]- Infectious Disease History: No Infectious Disease History: Denies: Traveled Outside the [place] in Last 30 Days - Family History Known Family History: Positive: Other - colon CA - Social History Alcohol Use: Rare Alcohol Amount: 5 drinks/year Hx Substance Use: No Substance Use Type: Reports: None Hx Tobacco Use: No Smoking Status (MU): Never Smoked Tobacco Review of Systems Negative: Palpitations, Chest Pain Negative: Shortness Of Breath Positive: Nausea Neurological: Other - dizziness and lightheadedness Positive: Weakness All Other Systems Reviewed And Are Negative: Yes Physical Exam - Summary Physical Exam Summary: VITAL SIGNS: Reviewed. GENERAL: Patient is a well-developed and nourished FEMALE who is lying comfortable in the stretcher. Patient is not in any acute respiratory distress. Patient is very pale. HEAD AND FACE: No signs of trauma. No ecchymosis, hematomas or skull depressions. No sinus tenderness. EYES: PERRLA, EOMI x 2, No injected conjunctiva, no nystagmus. EARS: Hearing grossly intact. Ear canals and tympanic membranes are within normal limits. MOUTH: Oropharynx within normal limits. NECK: Supple, trachea is midline, no adenopathy, no JVD, no carotid bruit, no c- spine tenderness, neck with full ROM. CHEST: Symmetric, no tenderness at palpation LUNGS: Clear to auscultation bilaterally. No wheezing or crackles. CVS: Regular rate and rhythm, S1 and S2 present, no murmurs or gallops appreciated. ABDOMEN: Soft, non-tender. No signs of distention. No rebound no guarding, and no masses palpated. Bowel sounds are normal. EXTREMITIES: FROM in all major joints, no edema, no cyanosis or clubbing. NEURO: Alert and oriented x 3. No acute neurological deficits. Speech is normal and follows commands. SKIN: Dry and warm. CIVILIAN JAIL OFFICER: Female oracle engineer is present during the examination. External genitalia: within normal limits. No rash mes, lesions or ecchymosis. Speculum exam: vaginal martell with no lesions, masses, or rashes. Cervix normal. No CMTs. No adnexal masses. All cultures were collected and send to the lab. There is positive small amount of blood. Triage Information Reviewed: Yes Vital Signs On Initial Exam: Initial Vitals Temp Pulse Resp BP Pulse Ox 98.3 F 83 16 148/93 100 03/08/19 12:20 03/08/19 12:20 03/08/19 12:20 03/08/19 12:20 03/08/19 12:20 Vital Signs Reviewed: Yes Diagnostics - Vital Signs Vital Signs Temp Pulse Resp BP Pulse Ox 03/08/19 12:20 98.3 F 83 16 148/93 100 - Laboratory Result Diagrams: 03/08/19 22:27 03/08/19 13:09 Lab Statement: Any lab studies that have been ordered have been reviewed, and results considered in the medical decision making process. - EKG 1309 Cardiac Rate: NL - 85 BPM EKG Rhythm: Sinus Rhythm Summary of EKG Findings: Sinus rhythm [address] elevations - Additional Comments Diagnostic Additional Comments: Transvaginal US shows, per radiologist, 1. LIMITED STUDY. 2. FIBROID UTERUS. 3. THE ENDOMETRIAL STRIPE MEASURES UP TO 0.6 CM 4. THE OVARIES ARE NOT CLEARLY VISUALIZED. ED physician has reviewed this report. Complex Multi-Symp Course/Dx Assessment/Plan: 48 year old F [facility] accompanied by with a chief complaint of worsening dizziness and lightheadedness lasting for several minutes for 3 months. The patient rates the pain 0/10 in severity. Symptoms aggravated by standing. Symptoms alleviated by sitting down. Patient reports weakness and nausea. Patient reports heavy vaginal bleeding. Patient denies chest pain, shortness of breath, palpitations. Patient was seen by her primary care provider this morning and had bloodwork done. Patient denies being . Blood test results without any significant normality except for hemoglobin 5.8 and hematocrit 22. Glucose is 284, CRP is 19.89 urinalysis is red in color, 2+ protein, 1+ ketones, 2+ blood, positive leukocytes, positive wbcs and positive RBCs. Positive as well as epithelial cells. In the ED course the patient was given a blood transfusion. Consent is in the chart and the patient agrees. Pelvic ultrasound impression: Limited study. Fibroid uterus. Endometrial stripe measuring up to 0.6 cm and the ovaries are not clearly visualized. At this point I discussed the case with Dr. Goodman from CIVILIAN JAIL OFFICER and he accepted the patient for admission. The patient is hemodynamically stable alert oriented 3. - Diagnoses Provider Diagnoses: Symptomatic anemia, Vaginal bleeding - Physician Notifications Discussed Care Of Patient With: Daryl Kim Time Discussed With Above Provider: 16:50 Instructed by Provider To: Other - Dr. Kim, OBGYN, will admit the patient. - Critical Care Time Critical Care Time: 75-104 min Discharge - Sign-Out/Discharge Documenting (check all that apply): Patient Departure - Admit Patient Received Moderate/Deep Sedation with Procedure: No - Discharge Plan Condition: Good Disposition: ADMITTED TO [facility] - Billing Disposition and Condition Condition: GOOD Disposition: Admitted to [facility] - Attestation Statements Document Initiated by Scribe: Yes Documenting Scribe: July Hopper Provider For Whom Zahida is Documenting (Include Credential): Dirk Bennett MD Scribe Attestation: July Torres, scribed for Dirk Bennett MD on 03/09/19 at 2112. Scribe Documentation Reviewed: Yes Provider Attestation: The documentation as recorded by the July renee accurately reflects the service I personally performed and the decisions made by , Dirk Bennett MD Status of Scribe Document: Viewed
[2019-03-08 13:26] LABS: Hematocrit 22 % (35-47); Hemoglobin 5.8 g/dL (12.0-16.0); Mean Corpuscular HGB Conc 27 g/dL (31-36); Mean Corpuscular Hemoglobin 14 pg (27-31); Mean Corpuscular Volume 53 fL (80-97); Mean Platelet Volume 8.8 fL (7.4-10.4); Platelet Count 479 10^3/uL (150-450); Red Blood Count 4.11 10^6 /uL (3.70-4.87); Red Cell Distribution Width 22 % (10-15); White Blood Count 7.3 10^3/uL (3.5-10.8)
[2019-03-08 13:27] LABS: ABS Basophils 0.1 10^3/ul (0-0.2); ABS Eosinophils 0.1 10^3/ul (0-0.6); ABS Lymphocytes 3.1 10^3/ul (1.0-4.8); ABS Monocytes 0.2 10^3/ul (0-0.8); ABS Neutrophils 3.8 10^3/ul (1.5-7.7); Eosinophil % 1.2 %; Lymphocyte % 42.5 %
[2019-03-08 13:40] LABS: ALT 11 U/L (7-52); AST 21 U/L (13-39); Albumin/Globulin Ratio 1.2 (1-3); Alkaline Phosphatase 54 U/L (34-104); Anion Gap 10 mmol/L (2-11); BUN/Creatinine Ratio 10.3 (8-20); Blood Urea Nitrogen 7 mg/dL (6-24); CO2 Carbon Dioxide 22 mmol/L (22-32); Calcium 9.4 mg/dL (8.6-10.3); Chloride 105 mmol/L (101-111); EGFR African American 111.7 (>60); EGFR Non-African American 92.3 (>60); Globulin 3.4 g/dL (2-4); Glucose 284 mg/dL (70-100); Potassium 3.5 mmol/L (3.5-5.0); Sodium 137 mmol/L (135-145); Total Protein 7.4 g/dL (6.4-8.9)
[2019-03-08 13:43] LABS: Activated Partial Thrombo Time 24.5 seconds (26.0-38.0); INR 0.95 (0.82-1.09)
[2019-03-08 14:12] LABS: Microcytosis 3+; Polychromasia 2+
[2019-03-08 14:47] LABS: HCG Pregnancy < 0.60 mIU/mL
[2019-03-08 14:53] LABS: Urine Appearance Cloudy; Urine Bacteria Absent (Absent); Urine Bilirubin Negative (Negative); Urine Blood 3+ (Negative); Urine Glucose 3+(>=500 mg/dL) (Negative); Urine Ketones 1+ (Negative); Urine Nitrite Negative (Negative); Urine Protein 2+(100 mg/dL) (Negative); Urine Red Blood Cell 3+(>10/hpf) (Absent); Urine Specific Gravity 1.017 (1.010-1.030); Urine Squamous Epithelial Cell Present (Absent); Urine Urobilinogen Negative (Negative); Urine White Blood Cell 3+(>20/hpf) (Absent)
[2019-03-08 15:00] LABS: C Reactive Protein 9.89 mg/L (<8.01)
[2019-03-08 15:02] LABS: Urine Color Red
[2019-03-08] MEDS ORDERED: Meclizine TAB* 12.5 MG PO ONE (16:25)
[2019-03-08 18:09] LABS: TSH (Thyroid Stimulating Horm) 1.77 mcIU/mL (0.34-5.60)
[2019-03-08 18:11] LABS: Free T4 0.66 ng/dL (0.61-1.12)
[2019-03-08 18:22] LABS: Cholesterol 198 mg/dL; HDL Cholesterol 47.9 mg/dL; LDL Cholesterol 106 mg/dL; Triglycerides 221 mg/dL
--- NOTE | 2019-03-08 19:03 | HP ---
History of Present Illness - History of Present Illness Reason for Visit: Abnormal uterine bleeding and dizziness History of Present Illness: Mrs. Dan is a 48 y/o with a long history of menometrorrhagia and oligomenorrhea. She admits to persistent daily vaginal bleeding for the past 3- 4 months and decided to come to the emergency room due to increasing dizziness and unrelenting bleeding. In the emergency room she was evaluated and noted to have severe anemia with a HGB of 5.8, elevated blood glucose and a pelvic ultrasound c/w uterine fibroids. She denies constitutional s/sx, chest pain, palpitations, shortness of breath, abdominal/pelvic pain or dysmenorrhea. 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 Psych: Other - Imsomnia Musculoskeletal: Other - Restless leg syndrome ENT: Other - Sleep Apnea Endocrine: Diabetes, Other - Gestational Diabetes, Obesity Grav: 1 - Complicated by gestational diabetes Para: 1 - Delivered by section Ab: 0 - Past Surgical History Past Surgical History: - Section 1997 - Past Family History Family History: Cancer - Mother-Liver Cancer, Fathe Brain cancer, Colon cancer, Other - Mothert and Sister Uterine Fibroids - Past Social History Smoke: No Alcohol: Rare Drugs: None Lives: With Family Domestic Violence: Negative - Health Maintenance Health Maintenance: Pap Smear - 5 years ago needs out patient testing, Review of Systems - Review of Systems Cardiovascular: Positive: Light Headedness Genitourinary: Positive: Other - Vaginal bleeding - Medications/Allergies Allergies/Adverse Reactions: Allergies Allergy/AdvReac Type Severity Reaction Status Date / Time No Known Allergies Allergy Verified 03/08/19 12:24 Exam - Exam Vital Signs: Vital Signs (72 hours) 03/08/19 03/08/19 03/08/19 12:20 13:23 13:53 Temperature 98.3 F Pulse Rate 83 85 85 Respiratory 16 19 17 Rate Blood Pressure 148/93 136/88 120/93 (mmHg) O2 Sat by Pulse 100 100 100 Oximetry 03/08/19 03/08/19 03/08/19 14:00 14:30 14:49 Temperature Pulse Rate 82 84 Respiratory 22 28 18 Rate Blood Pressure 136/83 121/81 (mmHg) O2 Sat by Pulse 100 100 Oximetry 03/08/19 03/08/19 03/08/19 14:53 15:00 15:23 Temperature Pulse Rate 83 83 84 Respiratory 22 25 24 Rate Blood Pressure 124/71 118/70 (mmHg) O2 Sat by Pulse 100 99 100 Oximetry 03/08/19 03/08/19 03/08/19 15:53 16:00 16:23 Temperature Pulse Rate 85 77 83 Respiratory 18 21 23 Rate Blood Pressure 134/87 131/100 (mmHg) O2 Sat by Pulse 100 100 100 Oximetry 03/08/19 03/08/19 03/08/19 16:53 17:00 17:23 Temperature Pulse Rate 75 83 75 Respiratory 20 22 21 Rate Blood Pressure 116/82 132/81 (mmHg) O2 Sat by Pulse 100 100 99 Oximetry 03/08/19 03/08/19 17:44 17:53 Temperature Pulse Rate 76 85 Respiratory 19 16 Rate Blood Pressure 130/85 135/81 (mmHg) O2 Sat by Pulse 100 100 Oximetry General: Alert, Oriented x3, Cooperative, No acute distress Lungs: Clear to auscultation Cardiovascular: Regular rate - Tachy Abdomen: Normal bowel sounds, Soft, No tenderness, No hepatospenomegaly, No masses Neurological: Normal speech Psych/Mental Status: Mental status NL, Mood NL Assessment/Plan - Assessment/Plan Assessment: 48 y/o with Uterine fibroids noted on ultrasound, Abnormal uterine bleeding with Hgb less than 7.0 and symptomatic, elevated glucose c/w diabetes. Plan: Plan. Blood transfusion Oral contraceptive pills to stabilize the endometrium and curtail/stop bleeding. ( endometrial stripe on ultrasound is thin 6mm therefore Progestin therapy may denude endometrium further and exacerbate bleeding. Diabetes, Obesity raises risks of clot formation precluding high dose estrogen treatment. Patients bleeding is decreased considerably I do not see a need for invasive treatment with D/C or UAE at this stage. Hospitalist consult for diabetes. Rec. Outpatient continued evaluation with pap smear, endometrial biopsy and discussed watermaster treatment plan/options. Lab Results: Laboratory Results - last 24 hr 03/08/19 03/08/19 03/08/19 13:09 13:09 13:09 WBC 7.3 RBC 4.11 Hgb 5.8 L* Hct 22 L MCV 53 L MCH 14 L MCHC 27 L RDW 22 H Plt Count 479 H MPV 8.8 Neut % (Auto) 52.2 Lymph % (Auto) 42.5 Shoshone % (Auto) 3.2 Eos % (Auto) 1.2 Baso % (Auto) 0.9 Absolute Neuts (auto) 3.8 Absolute Lymphs (auto) 3.1 Absolute Monos (auto) 0.2 Absolute Eos (auto) 0.1 Absolute Basos (auto) 0.1 Absolute Nucleated RBC 0.0 Immature Gran % 2.0 Neutrophils % 63.0 Lymphocytes % 28.0 Monocytes % 5.0 Eosinophils % 2.0 Myelocytes % 2.0 H Nucleated RBC % 0.0 Normal RBC Morphology Not Reportable Polychromasia 2+ Hypochromasia 3+ Microcytosis 3+ Hem Pathologist Commnt INR (Anticoag Therapy) 0.95 APTT 24.5 L Sodium 137 Potassium 3.5 Chloride 105 Carbon Dioxide 22 Anion Gap 10 BUN 7 Creatinine 0.68 Est GFR ( Amer) 111.7 Est GFR (Non-Af Amer) 92.3 BUN/Creatinine Ratio 10.3 Glucose 284 H Hemoglobin A1c Calcium 9.4 Total Bilirubin 0.50 AST 21 ALT 11 Alkaline Phosphatase 54 C-Reactive Protein 9.89 H Total Protein 7.4 Albumin 4.0 Globulin 3.4 Albumin/Globulin Ratio 1.2 Triglycerides 221 Cholesterol 198 LDL Cholesterol 106 HDL Cholesterol 47.9 TSH 1.77 Free T4 0.66 Prolactin 15.0 Beta HCG, Quant < 0.60 Urine Color Urine Appearance Urine pH Ur Specific [place] Urine Protein Urine Ketones Urine Blood Urine Nitrate Urine Bilirubin Urine Urobilinogen Ur Leukocyte Esterase Urine WBC (Auto) Urine RBC (Auto) Ur Squamous Epith Cells Urine Bacteria Urine Glucose Blood Type Antibody Screen Crossmatch 03/08/19 03/08/19 03/08/19 13:09 13:09 14:34 WBC RBC Hgb Hct MCV MCH MCHC RDW Plt Count MPV Neut % (Auto) Lymph % (Auto) Shoshone % (Auto) Eos % (Auto) Baso % (Auto) Absolute Neuts (auto) Absolute Lymphs (auto) Absolute Monos (auto) Absolute Eos (auto) Absolute Basos (auto) Absolute Nucleated RBC Immature Gran % Neutrophils % Lymphocytes % Monocytes % Eosinophils % Myelocytes % Nucleated RBC % Normal RBC Morphology Polychromasia Hypochromasia Microcytosis Hem Pathologist Commnt INR (Anticoag Therapy) APTT Sodium Potassium Chloride Carbon Dioxide Anion Gap BUN Creatinine Est GFR ( Amer) Est GFR (Non-Af Amer) BUN/Creatinine Ratio Glucose Hemoglobin A1c 9.4 H Calcium Total Bilirubin AST ALT Alkaline Phosphatase C-Reactive Protein Total Protein Albumin Globulin Albumin/Globulin Ratio Triglycerides Cholesterol LDL Cholesterol HDL Cholesterol TSH Free T4 Prolactin Beta HCG, Quant Urine Color Red A Urine Appearance Cloudy Urine pH 6.0 Ur Specific [place] 1.017 Urine Protein 2+(100 mg/dl) A Urine Ketones 1+ A Urine Blood 3+ A Urine Nitrate Negative Urine Bilirubin Negative Urine Urobilinogen Negative Ur Leukocyte Esterase 1+ A Urine WBC (Auto) 3+(>20/hpf) A Urine RBC (Auto) 3+(>10/hpf) A Ur Squamous Epith Cells Present A Urine Bacteria Absent Urine Glucose 3+(>=500 mg/dl) A Blood Type O Positive Antibody Screen Negative Crossmatch See Detail Radiology Results: Diagnostics Summary of EKG Findings [1309] Sinus rhythm [address] elevations Patient Name: SHAKIRA DAN Medical Record#: [id number] Ordering Physician: Dirk Bennett MD Acct.#: [id number] : 1970 Age: 48 Sex: F Location: EMERGENCY DEPARTMENT Exam Date: 03/08/191406 ADM Status: [facility] ER Order Information: US TRANSVAGINAL Accession Number: [id number] CPT: 65439 HISTORY: Vaginal bleeding COMPARISONS: None relevant available at the time of dictation. TECHNIQUE: Multiple transverse and longitudinal ultrasound images were obtained of the pelvis using grayscale, color Doppler, and spectral Doppler imaging using the endovaginal transducer. FINDINGS: The study is technically limited. UTERUS: The uterus measures 6.1 cm x 7.0 cm x 7.7 cm. There are multiple uterine fibroids. This includes a posterior body fibroid measuring 4.3 x 5.6 x 4.7 cm, fundal fibroid measuring up to 2.1 cm, and left fundal fibroid measuring up to 2.4 cm. Several nabothian cysts are noted. ENDOMETRIUM: The endometrial stripe is smooth. The endometrium measures 0.6 cm in thickness. CUL-DE-SAC: There is no free fluid within the cul-de-sac. RIGHT OVARY: The right ovary is not clearly visualized. LEFT OVARY: The left ovary is not clearly visualized. A possible left ovary with normal venous flow was identified, though the imaging appearance is indeterminate. BLADDER: The bladder is not well visualized. OTHER: None IMPRESSION: 1. LIMITED STUDY. 2. FIBROID UTERUS. 3. THE ENDOMETRIAL STRIPE MEASURES UP TO 0.6 CM 4. THE OVARIES ARE NOT CLEARLY VISUALIZED. <Electronically signed by Mau Gonzalez MD in OV> 03/08/19 1631 Dictated By: Mau Gonzalez MD Dictated Date/Time: 03/08/19 1631 Transcribed Date/Time: 03/08/19 1628 Copy to: This report is only to be considered final once signed by the Provider(s) as displayed in the "<Electronically Signed by >" field (s). Absence of a signature indicates the report is in a draft status and still needs to be finalized. In the event this document was created by someone other than the signing Provider, the individual initiating the document will be listed in the "Entered by:" or "Dictated by:" montano. 1 of 2
[2019-03-08] MEDS ORDERED: Norgestrel/Ethinyl Estrad TAB* 0.5 MG/0.05 MG PO SCH (22:30)
[2019-03-08 22:35] LABS: Hematocrit 27 % (35-47); Hemoglobin 7.8 g/dL (12.0-16.0)
[2019-03-08] MEDS ORDERED: Dextrose 50% Syringe 50 ML* 25 GM/50 ML SYRINGE IV PUSH PRN (23:36)
--- NOTE | 2019-03-09 02:39 | CONS ---
HOSPITAL MEDICINE CONSULTATION REPORT: DATE OF CONSULT: 03/08/19 PROVIDER: Angeli Garcia NP. ATTENDING PHYSICIAN WHILE IN THE HOSPITAL: Dr. Kim. CONSULTING PHYSICIAN: Dr. Mary Guaman (dictated by Angeli Garcia NP). REASON FOR CONSULT: Hyperglycemia. HISTORY OF PRESENT ILLNESS: Ms. Dan is a 48-year-old female with a past medical history significant for sleep apnea, who wears CPAP, who presented to the emergency room with complaints of dizziness and increased shortness of breath with exertion. She was sent from her primary care office for further evaluation. The patient upon evaluation in the emergency room was found to have profound anemia with vaginal bleeding. Due to these findings, BRAID FOLDER admitted the patient for further evaluation and blood transfusions. Please see the dictated H and P from Dr. Kim for complete details. In brief, the patient had heavy menstrual bleeding and was found to be anemic with an H and H of 5.8 and 22. Due to these findings, the patient was admitted to the hospital. The routine blood work also showed a glucose of 284. Given the elevated blood sugar, Hospital Medicine was consulted to co-manage her newly diagnosed diabetes. PAST MEDICAL HISTORY: Sleep apnea, wears CPAP at night. PAST SURGICAL HISTORY: . HOME MEDICATIONS: Include: 1. Gabapentin 300 mg at h.s. 2. Ibuprofen as needed. 3. Multivitamin 1 tablet p.o. daily. FAMILY HISTORY: No reported family history. SOCIAL HISTORY: The patient denies any tobacco. Reports rare alcohol use. Denies any illicit drug use. She is . She lives with her . Surrogate decision maker in the event she is unable to make her own decisions is her . She is a full code. REVIEW OF SYSTEMS: She denies any fevers, unintended weight loss, chest pain, edema, cough, or hemoptysis. She does report shortness of breath with exertion. She does report nausea with associated dizziness over the past 2 months. Denies any diarrhea or abdominal pain, gross hematuria or dysuria, focal weakness or sensory loss. Denies any visual complaints or dysphagia. She does complain of generalized body and muscle aches x2 months. No rashes, lesions, or open sores. Denies any psychosis or anxiety. PHYSICAL EXAM: General: At this time, Ms. Dan is resting on the stretcher in the emergency room. She is in no acute distress. HEENT: Head is atraumatic , normocephalic. Eyes: EOMs are intact. Sclerae are pale. Oral mucosa appeared to be moist. Neck is supple. Lungs are clear to auscultation bilaterally. No wheezes, rales, or rhonchi. Cardiac: S1, S2. Regular rate and rhythm. No murmurs, rubs, or gallops. Abdomen is soft and nontender. Bowel sounds are present x4. Musculoskeletal: She is able to move all 4 extremities with 5/5 strength. Skin is intact. Neurologic: She is awake, alert, and oriented x3. Speech is clear. Thought process is intact. She has no gross focal deficits. LABORATORY DATA AND DIAGNOSTIC STUDIES: WBCs are 7.3, RBCs 4.11, hemoglobin 5.8 , hematocrit was 22, MCV was 53, MCH was 14, MCHC was 27, RDW was 22, platelet count was 479. INR was 0.95, APTT was 24.5. Sodium 137, potassium 3.5, chloride 105, carbon dioxide was 22, anion gap was 10, BUN was 7, creatinine 0.68, glucose was 284. Hemoglobin A1c was 9.4. Calcium 9.4, AST was 21, ALT was 11, alkaline phosphatase was 54. C-reactive protein was 9.89. Albumin was 4.0, globulin was 3.4. Triglycerides were 221, cholesterol 198, LDL was 106, HDL was 47. TSH was 1.77, free T4 was 0.66, total T3 was 129. Prolactin was 15 and beta-hCG was less than 60. Urine color was red, cloudy, pH was 6.0, specific gravity was 1.017. Urine protein was 2+, ketones 1+, blood was 3+. Urine nitrites were negative. Urobilinogen was negative. Urine leukocyte esterase was 1+, wbc's were 3+, rbc's were 3+, squamous epithelial cells were present, bacteria was absent, and glucose was 3+. She had a transvaginal ultrasound, it was a limited study; fibroid uterus, endometrial stripe measures up to 0.6 cm, ovaries are not clearly visualized. She had an electrocardiogram , which showed sinus rhythm at a rate of 85, no ST or T- wave changes. ASSESSMENT AND PLAN: Ms. Dan is a 48-year-old female with a past medical history of sleep apnea, who presented to the emergency room for evaluation of dizziness and vaginal bleeding. Hospital Medicine was asked to consult due to hyperglycemia. Our recommendations are as follows: 1. Vaginal bleeding. Management per BRAID FOLDER. 2. Hyperglycemia. The patient does have a blood sugar of 280 and a hemoglobin A1c of 9.4. This will be a new diagnosis of type 2 diabetes. I would recommend starting metformin 500 mg p.o. b.i.d. and fingersticks with meals with lispro sliding scale while she is in the hospital and just only continue metformin at discharge. 3. Obstructive sleep apnea. The patient should use a CPAP at night. 4. FEN: She can have a consistent carb diet. 5. Code status is a full code. 6. DVT prophylaxis as per BRAID FOLDER. TIME SPENT: Time spent on this consultation was approximately 45 minutes, greater than half the time was spent at the bedside reviewing the events leading thus far to her hospitalization, performing physical exam, and reviewing my plan of care. I have discussed this with my attending Dr. Mary Guaman, she is in agreement with my plan. ANGELI GARCIA, ETL DATA ARCHITECT [id number]/[facility] #: [id number] [place]
[2019-03-09 04:17] VITALS: BP 131/70
[2019-03-09] MEDS ORDERED: Insulin LISPRO* 1 UNITS UNIT SUBCUT SCH ×2 (07:30→11:30)
[2019-03-09] MEDS ORDERED: Dextrose 50% Syringe 50 ML* 25 GM/50 ML SYRINGE IV PUSH PRN (07:55)
--- NOTE | 2019-03-09 07:58 | PN ---
Subjective Date of Service: 03/09/19 Interval History: Medicine Consult Note 48 F presented with dizziness, known hx of mennorhagia, incidenteally dx with new DM2, A1C 9.4. Medicine consulted on DM mgmt Overnight pt did not sleep and wanted to leave. Transfused x 2 U, Hgb 7.8 appropriate response Started Metformin and Glipizide though appears she did not take any, got lispro in the ER. Objective Active Medications: Dextrose (D50w Syringe 50 Ml*) 12.5 gm IV PUSH .FOR FS < 60 - SS PRN PRN Reason: FS < 60 Glipizide (Glucotrol Xl*) 5 mg PO DAILY NEAL Insulin Human Lispro (Humalog*) 0 units SUBCUT ACHS NEAL; Protocol Metformin HCl (Glucophage*) 500 mg PO 0800,1700 [facility] Vital Signs - 8 hr 03/09/19 03:26 Temperature 98.2 F Pulse Rate 77 Respiratory 18 Rate Blood Pressure 131/70 (mmHg) O2 Sat by Pulse 99 Oximetry Oxygen Devices in Use Now: None Result Diagrams: 03/08/19 22:27 03/08/19 13:09 Assess/Plan/Problems-Billing Assessment:
[2019-03-09] MEDS ORDERED: glipiZIDE TAB.XL* 5 MG PO SCH (08:00)
[2019-03-09] MEDS ORDERED: metFORMIN* 500 MG TAB PO SCH ×2 (08:00)
[2019-03-09] MEDS ORDERED: NORETHINDRONE PO SCH (09:00)
[2019-03-09] MEDS ORDERED: ETHINYL ESTRADIOL PO SCH (09:00)
[2019-03-09] MEDS ORDERED: FERROUS FUMARATE PO SCH (09:00)
--- NOTE | 2019-03-09 12:21 | PN ---
Hospitalist Progress Note Date of Service: 03/09/19 Medicine Consult Note 48 F presented with dizziness, known hx of mennorhagia, incidenteally dx with new DM2, A1C 9.4. Medicine consulted on DM mgmt Overnight pt did not sleep and wanted to leave. Transfused x 2 U, Hgb 7.8 appropriate response Started Metformin and Glipizide though appears she did not take any, got lispro in the ER. she left AMA at 6:45Am before I could see her
== END 2019-03-09 06:45 | disposition left against medical advice (07) ==
LOC: ED 12:05 → MED 17:57
PROVIDERS: ADMIT Obstetrics & Gynecology; ATTEND Obstetrics & Gynecology
DX: N92.1 Excessive and frequent menstruation with irregular cycle (principal); N91.5 Oligomenorrhea, unspecified; D64.9 Anemia, unspecified; R42 Dizziness and giddiness; R11.0 Nausea; R53.1 Weakness; G25.81 Restless legs syndrome; D25.9 Leiomyoma of uterus, unspecified
CPT/HCPCS: 36415; 36430; 76830; 80053; 80061; 81003; 81015; 83036; 84146; 84439; 84443; 84479; 84702; 85014; 85018; 85025; 85060; 85610; 85730; 86140; 86850; 86900; 86901; 86922; 87077; 87086; 87186; 93005; 99285; A9270-GY; G0378; P9040